=== PATIENT | male | born 1960 | race Caucasian/White ===

== ENCOUNTER 2019-06-28 13:39 | Emergency (ER) | payer BC ==
[2019-06-28] MEDS ORDERED: methylPREDNISolone SOD SUCCI 125 MG/2 ML VIAL IM ONE (14:31)
[2019-06-28] MEDS ORDERED: diphenhydrAMINE 50 MG CAP PO STA (14:31)
--- NOTE | 2019-06-28 15:34 | US ---
EXAMINATION TYPE: US venous doppler duplex LE LT DATE OF EXAM: 06/28/2019 3:09 PM COMPARISON: NONE CLINICAL HISTORY: pain. Injury with pain. SIDE PERFORMED: Left TECHNIQUE: The lower extremity deep venous system is examined utilizing real time linear array sonog meme with graded compression, doppler sonography and color-flow sonography. VESSELS IMAGED: External Iliac Vein (EIV) Common Femoral Vein Deep Femoral Vein Greater Saphenous Vein * Femoral Vein Popliteal Vein Small Saphenous Vein * Proximal Calf Veins (* superficial vessels) Left Leg: Negative for DVT Grayscale, color doppler, spectral doppler imaging performed of the deep veins of the left lower extr emity. There is normal flow, compressibility, vascular waveforms. IMPRESSION: No ultrasound evidence for acute DVT in the left lower extremity.
[2019-06-28 15:39] VITALS: TEMP 98.2
--- NOTE | 2019-06-28 16:13 | XR ---
EXAMINATION TYPE: XR knee 4V LT DATE OF EXAM: 06/28/2019 CLINICAL HISTORY: Pain after fall injury. TECHNIQUE: Three views of the left knee are obtained. Fourth sunrise view is acquired. COMPARISON: None. FINDINGS: There is no acute fracture/dislocation evident in left knee. Patellar articulation satisfa ctory on sunrise view. [id number] tricompartment joint space loss without significant spurring. Increased density suprapatellar bursa suspicious for small to moderate size joint effusion. IMPRESSION: There is no acute fracture or dislocation in the left knee.
--- NOTE | 2019-06-28 16:44 | ED ---
General Adult HPI - General Chief complaint: Extremity Injury, Lower Stated complaint: left face swelling, swollen left leg Time Seen by Provider: 06/28/19 14:13 Source: patient, RN notes reviewed Mode of arrival: wheelchair Limitations: no limitations - History of Present Illness Initial comments: 58-year-old male with a past medical history of hypertension presents to the emergency department for a chief complaint of left leg swelling. Patient states that he injured his knee a few weeks ago while wrestling and then hurt it again about a week ago. States that 3 days ago he started to have some swelling of the left leg. States he was concerned this could be a blood clot. Patient also incidentally had some left-sided facial swelling that started today. He states he was sitting with his when his left upper lip started swelling. Denies any swelling of the tongue. Denies any difficulty swallowing or difficulty breathing. Denies any ALLERGIES or trying any new foods.Patient has no other complaints at this time including shortness of breath, chest pain, abdominal pain, nausea or vomiting, headache, or visual changes. - Related Data Previous Rx's Medication Instructions Recorded predniSONE 50 mg PO DAILY #5 tablet 06/28/19 Allergies Allergy/AdvReac Type Severity Reaction Status Date / Time No Known Allergies Allergy Verified 06/28/19 14:00 Review of Systems ROS Statement: Those systems with pertinent positive or pertinent negative responses have been documented in the HPI. ROS Other: All systems not noted in ROS Statement are negative. Past Medical History Past Medical History: Hypertension Additional Past Medical History / Comment(s): gout History of Any Multi-Drug Resistant Organisms: None Reported Past Surgical History: Hernia Repair Past Psychological History: Anxiety, Depression Smoking Status: Never smoker Past Alcohol Use History: Daily Past Drug Use History: None Reported General Exam Limitations: no limitations General appearance: alert, in no apparent distress Head exam: Present: atraumatic, normocephalic, normal inspection Eye exam: Present: normal appearance, PERRL, EOMI. Absent: scleral icterus, conjunctival injection ENT exam: Present: normal exam, mucous membranes moist, TM's normal bilaterally, normal external ear exam. Absent: normal oropharynx (Patient does have mild edema of the left upper lip. No droop. Tongue is within normal limits. Patient able to smile without difficulty. Sensation is intact. There does not seem to be any dental abscesses.) Neck exam: Present: normal inspection, full ROM. Absent: tenderness, meningismus, lymphadenopathy Respiratory exam: Present: normal lung sounds bilaterally. Absent: respiratory distress, wheezes, rales, rhonchi, stridor Cardiovascular Exam: Present: regular rate, normal rhythm, normal heart sounds. Absent: systolic murmur, diastolic murmur, rubs, gallop, clicks GI/Abdominal exam: Present: soft, normal bowel sounds. Absent: distended, tenderness, guarding, rebound, rigid Extremities exam: Present: other (Capillary refill less than 2 seconds in the left lower extremity, DP pulse is 2+. Patient does have some mild edema of the left leg compared to the right leg. It is not erythematous, it is not warm to touch. He has full range of motion of the left knee ankle and hip. He is able to ambulate.) Course Vital Signs 06/28/19 06/28/19 13:56 15:38 Temperature 98.3 F 98.2 F Pulse Rate 85 91 Respiratory 20 16 Rate Blood Pressure 171/115 168/88 O2 Sat by Pulse 97 98 Oximetry Medical Decision Making - Medical Decision Making Patient was evaluated by Dr. Hahn as well. At this time we think the edema of the left lip is likely a idiopathic angioedema. He was given Solu-Medrol and Benadryl and had significant improvement in symptoms. In fact it is almost gone at the time of arrival. As for his leg, an ultrasound was performed that showed no evidence for acute DVT. Exam the left knee was then added which did show no acute fracture or dislocation. There is [id number] tricompartmental joint space loss and increase density suprapatellar bursa suspicious for small to moderate-sized joint effusion. Again discussed this with Dr. Hahn. This and the recommend following up with Dr. Flynn closely and returning if any symptoms worsen. Disposition Clinical Impression: Leg edema, left Disposition: HOME SELF-CARE Condition: Good Instructions (If sedation given, give patient instructions): Leg Edema (ED) Additional Instructions: Please keep leg elevated. He may try to use a compression stocking as well. Follow up with Dr. Flynn closely. You can also follow [facility] with [facility]. If things are worsening and he cannot be evaluated by her doctor please return to the emergency room. Prescriptions: predniSONE 50 mg PO DAILY #5 tablet Is patient prescribed a controlled substance at d/c from ED?: No Referrals: Hansel Flynn MD [Primary Care Provider] - 1-2 days Time of Disposition: 16:43
[2019-06-28 17:10] VITALS: BP 146/94; PULSE 86; RESP 18
== END 2019-06-28 17:09 | disposition home or self-care (01) ==
LOC: EC 13:39
DX: R60.0 Localized edema (principal); M10.9 Gout, unspecified
CPT/HCPCS: 73564; 93971; 99284; 96372; J2930

== ENCOUNTER 2022-09-08 11:02 | Emergency (ER) | payer BC ==
[2022-09-08 11:05] VITALS: RESP 18; TEMP 98.8
[2022-09-08] MEDS ORDERED: SODIUM CHLORIDE 0.9% 1,000 ML IV STA (11:24)
[2022-09-08] MEDS ORDERED: PANTOPRAZOLE 40 MG/10 ML VIAL IVP STA (11:24)
[2022-09-08] MEDS ORDERED: KETOROLAC 15 MG/ML 1 ML VIAL IVP STA (11:24)
[2022-09-08] MEDS ORDERED: LIDOCAINE 5% PATCH TOPICAL STA (11:24)
[2022-09-08] MEDS ORDERED: ONDANSETRON 4 MG/2 ML VIAL IVP STA (11:24)
[2022-09-08 12:03] LABS: Basophils % (A) 0 %; Eosinophils # (A) 0.1 k/uL (0-0.7); Eosinophils % (A) 1 %; HCT 46.6 % (39.0-53.0); HGB 15.3 gm/dL (13.0-17.5); Lymphocytes % (A) 10 %; MCH 29.3 pg (25.0-35.0); MCHC 32.9 g/dL (31.0-37.0); MCV 89.1 fL (80.0-100.0); Mean Platelet Volume 8.7; Monocytes # (A) 0.8 k/uL (0-1.0); Monocytes % (A) 8 %; Neutrophils % (A) 79 %; Platelet Count 224 k/uL (150-450); RBC 5.23 m/uL (4.30-5.90); RDW 12.8 % (11.5-15.5); WBC 10.2 k/uL (3.8-10.6)
[2022-09-08 12:11] LABS: Partial Thromboplastin Time 22.2 sec (22.0-30.0); Prothrombin Time 10.9 sec (9.0-12.0)
--- NOTE | 2022-09-08 12:22 | ED ---
General Adult HPI - General Chief complaint: Abdominal Pain Stated complaint: abd pain Time Seen by Provider: 09/08/22 11:06 Source: patient, RN notes reviewed, old records reviewed Mode of arrival: ambulatory Limitations: no limitations - History of Present Illness Initial comments: Patient is a 61-year-old male who presents emergency Department complaining of abdominal pain. Has a history of hypertension, gout, alcohol use. Denies any history of withdrawals. Presents emergency Department in of right upper quadrant abdominal pain which she states is a sharp, aching sensation located in the right upper quadrant. Also having diarrhea. Has been ongoing for 3 days. He is uncertain of this is mostly skeletal related to something intra-abdominal. Denies any chest pain or shortness of breath. Denies any right shoulder pain. Denies any nausea or vomiting. Pain is worse with movement. More or less constant. Some improvement only on it. No other acute complaints at this time. Was heavy lifting on Thursday which is when he started noticing the pain. Presents for further evaluation at this time. - Related Data Previous Rx's Medication Instructions Recorded predniSONE 50 mg PO DAILY #5 tablet 06/28/19 Cyclobenzaprine [Flexeril] 5 mg PO BID 7 Days #14 tablet 09/08/22 Allergies Allergy/AdvReac Type Severity Reaction Status Date / Time No Known Allergies Allergy Verified 09/08/22 11:05 Review of Systems ROS Statement: Those systems with pertinent positive or pertinent negative responses have been documented in the HPI. Review of Systems: CONST: Denies fever EYES: Denies blurry vision ENT: Denies nasal congestion C/V: Denies Chest pain RESP: Denies shortness of breath GI: Endorses abdominal pain : Denies dysuria SKIN: Denies rash. MSK: Denies joint pain. NEURO: Denies headache ROS Other: All systems not noted in ROS Statement are negative. Past Medical History Past Medical History: Hypertension Additional Past Medical History / Comment(s): gout History of Any Multi-Drug Resistant Organisms: None Reported Past Surgical History: Hernia Repair Past Psychological History: Anxiety, Depression Smoking Status: Never smoker Past Alcohol Use History: Daily Past Drug Use History: None Reported General Exam - General Exam Comments Initial Comments: General: Appears in no acute distress. HEAD: Normal with no signs of head trauma. EYES: PERRLA, EOMI, conjunctiva normal, no discharge. ENT: Hearing grossly intact, normal oropharynx. RESPIRATORY: Clear breath sounds bilaterally. No wheezes, rales, or rhonchi. C/V: Regular rate and rhythm. S1 and S2 auscultated, peripheral pulses 2+ and intact throughout ABD: Abdomen is soft, nondistended. Tender to palpation in the right upper quadrant along the right rib. No guarding. No rebound tenderness. No peritoneal signs. No CVA tenderness to percussion. No lower abdominal pain. EXT: Normal range of motion, no obvious deformity SKIN: No rashes or lesions observed on exposed skin. NEURO: Alert and oriented 4. Limitations: no limitations Course Vital Signs 09/08/22 09/08/22 11:03 13:26 Temperature 98.8 F Pulse Rate 95 75 Respiratory 18 18 Rate Blood Pressure 162/114 150/92 O2 Sat by Pulse 98 98 Oximetry Medical Decision Making - Medical Decision Making Was pt. sent in by a medical professional or institution (, PA, PIG CASTING MACHINE OPERATOR, urgent care, hospital, or fpc...) When possible be specific @ -No Did you speak to anyone other than the patient for history (EMS, parent, family, police, friend...)? What history was obtained from this source @ -No Did you review nursing and triage notes (agree or disagree)? Why? @ -I reviewed and agree with nursing and triage notes Were old charts reviewed (outside hosp., previous admission, EMS record, old EKG, old radiological studies, urgent care reports/EKG's, fpc records)? Report findings @ -No old charts were reviewed Differential Diagnosis (chest pain, altered mental status, abdominal pain women, abdominal pain men, vaginal bleeding, weakness, fever, dyspnea, syncope, headache, dizziness, GI bleed, back pain, seizure, CVA, palpatations, mental health, musculoskeletal)? @ -Differential Abdominal Pain Men: Appendicitis, cholecystitis, diverticulosis, ischemic bowel, pancreatitis, hep atitis, UTI, gastroenteritis, AAA, incarcerated hernia, bowel obstruction, constipation, inflammatory bowel, hepatitis, peptic ulcer disease, splenic infarction, perforated viscus, testicular torsion, this is not meant to be an all-inclusive list EKG interpreted by me (3pts min.). @ -As above X-rays interpreted by me (1pt min.). @ -Chest x-ray reveals no obvious acute cardio pulmonary process. CT interpreted by me (1pt min.). @ -None done U/S interpreted by me (1pt. min.). @ -Gallbladder ultrasound reveals no evidence of cholecystitis. Positive sonographic Funk sign. Per radiology, recommend HIDA scan in the correct clinical setting. What testing was considered but not performed or refused? (CT, X-rays, U/S, labs)? Why? @ -Considered CT imaging of the abdomen and pelvis but patient declines at this time which I believe is reasonable the setting of normal labs and imaging otherwise. What meds were considered but not given or refused? Why? @ -None Did you discuss the management of the patient with other professionals (professionals i.e. , PA, PIG CASTING MACHINE OPERATOR, lab, RT, psych nurse, social media assistant, asp net software developer, teacher, senior officer, case making machine operator)? Give summary @ -No Was smoking cessation discussed for >3mins.? @ -No Was critical care preformed (if so, how long)? @ -No Were there social determinants of health that impacted care today? How? (Homelessness, low income, unemployed, alcoholism, drug addiction, transportation, low edu. Level, literacy, decrease access to med. care, care home, rehab)? @ -No Was there de-escalation of care discussed even if they declined (Discuss DNR or withdrawal of care, Hospice)? DNR status @ -No What co-morbidities impacted this encounter? (DM, HTN, Smoking, COPD, CAD, Cancer, CVA, ARF, Chemo, Hep., AIDS, mental health diagnosis, sleep apnea, morbid obesity)? @ -None Was patient admitted / discharged? Hospital course, mention meds given and route, prescriptions, significant lab abnormalities, going to OR and other pertinent info. @ -Based on the patient's presentation and physical exam, I'm concerned for possible intra-abdominal pain. Also be secondary to abdominal wall pain. We will obtain abdominal laboratory studies, right upper quadrant ultrasound, chest x-ray. Vital signs within normal limits. He will be sent likely treatment with IV Toradol, lidocaine patch, IV Zofran, Protonix, 1 L fluid bolus. Patient was in agreement this plan. EKG shows no signs of acute ischemia. Imaging is unremarkable. Patient's labs are remarkable for a mild elevated ALT were no other acute findings. On reevaluation, I discussed with the patient. I did offer him a CT imaging in the belly however he refuses at this time. He is feeling improved and believes it is a abdominal wall strain which I am in agreement with. Strict return precautions were discussed. He is given a starter pack of Tylenol 3's. I will provide the patient with a prescription for Flexeril. I instructed the patient to follow up with their PCP in the next 1-3 days. I explained that the patient should return to the emergency department if they experience any worsening symptoms. Strict return precautions were discussed with the patient. The patient expressed understanding of these instructions. I answered all questions that the patient had. The patient was discharged home in good condition with their prescriptions and follow up information. Undiagnosed new problem with uncertain prognosis? @ -No Drug Therapy requiring intensive monitoring for toxicity (Heparin, Nitro, Insulin, Cardizem)? @ -No Were any procedures done? @ -No Diagnosis/symptom? @ -Abdominal pain of unknown etiology, abdominal wall strain Acute, or Chronic, or Acute on Chronic? @ -Acute Uncomplicated (without systemic symptoms) or Complicated (systemic symptoms)? @ -Uncomplicated Side effects of treatment? @ -none Exacerbation, Progression, or Severe Exacerbation] @ -no Poses a threat to life or bodily function? @ -no - Lab Data Result diagrams: 09/08/22 11:30 09/08/22 11:30 Lab Results 09/08/22 09/08/22 09/08/22 Range/Units 11:30 11:30 11:30 WBC 10.2 (3.8-10.6) k/uL RBC 5.23 (4.30-5.90) m/uL Hgb 15.3 (13.0-17.5) gm/dL Hct 46.6 (39.0-53.0) % MCV 89.1 (80.0-100.0) fL MCH 29.3 (25.0-35.0) pg MCHC 32.9 (31.0-37.0) g/dL RDW 12.8 (11.5-15.5) % Plt Count 224 (150-450) k/uL MPV 8.7 Neutrophils % 79 % Lymphocytes % 10 % Monocytes % 8 % Eosinophils % 1 % Basophils % 0 % Neutrophils # 8.0 H (1.3-7.7) k/uL Lymphocytes # 1.0 (1.0-4.8) k/uL Monocytes # 0.8 (0-1.0) k/uL Eosinophils # 0.1 (0-0.7) k/uL Basophils # 0.0 (0-0.2) k/uL PT 10.9 (9.0-12.0) sec INR 1.0 (<1.2) APTT 22.2 (22.0-30.0) sec Sodium 131 L (137-145) mmol/L Potassium 3.5 (3.5-5.1) mmol/L Chloride 95 L (98-107) mmol/L Carbon Dioxide 23 (22-30) mmol/L Anion Gap 13 mmol/L BUN 10 (9-20) mg/dL Creatinine 0.65 L (0.66-1.25) mg/dL Est GFR (CKD-EPI)AfAm >90 (>60 ml/min/1.73 sqM) Est GFR (CKD-EPI)NonAf >90 (>60 ml/min/1.73 sqM) Glucose 101 H (74-99) mg/dL Plasma Lactic Acid Jason (0.7-2.0) mmol/L Calcium 8.6 (8.4-10.2) mg/dL Total Bilirubin 1.4 H (0.2-1.3) mg/dL AST 55 (17-59) U/L ALT 70 H (4-49) U/L Alkaline Phosphatase 65 (38-126) U/L Total Protein 6.4 (6.3-8.2) g/dL Albumin 4.0 (3.5-5.0) g/dL Amylase 50 (30-110) U/L Lipase 50 (23-300) U/L 09/08/22 Range/Units 11:30 WBC (3.8-10.6) k/uL RBC (4.30-5.90) m/uL Hgb (13.0-17.5) gm/dL Hct (39.0-53.0) % MCV (80.0-100.0) fL MCH (25.0-35.0) pg MCHC (31.0-37.0) g/dL RDW (11.5-15.5) % Plt Count (150-450) k/uL MPV Neutrophils % % Lymphocytes % % Monocytes % % Eosinophils % % Basophils % % Neutrophils # (1.3-7.7) k/uL Lymphocytes # (1.0-4.8) k/uL Monocytes # (0-1.0) k/uL Eosinophils # (0-0.7) k/uL Basophils # (0-0.2) k/uL PT (9.0-12.0) sec INR (<1.2) APTT (22.0-30.0) sec Sodium (137-145) mmol/L Potassium (3.5-5.1) mmol/L Chloride (98-107) mmol/L Carbon Dioxide (22-30) mmol/L Anion Gap mmol/L BUN (9-20) mg/dL Creatinine (0.66-1.25) mg/dL Est GFR (CKD-EPI)AfAm (>60 ml/min/1.73 sqM) Est GFR (CKD-EPI)NonAf (>60 ml/min/1.73 sqM) Glucose (74-99) mg/dL Plasma Lactic Acid Jason 1.0 (0.7-2.0) mmol/L Calcium (8.4-10.2) mg/dL Total Bilirubin (0.2-1.3) mg/dL AST (17-59) U/L ALT (4-49) U/L Alkaline Phosphatase (38-126) U/L Total Protein (6.3-8.2) g/dL Albumin (3.5-5.0) g/dL Amylase (30-110) U/L Lipase (23-300) U/L - EKG Data -: EKG Interpreted by Me EKG Comments: 12-lead Electrocardiogram Interpretation Note EKG was reviewed and interpreted by myself. 12-lead ECG performed at 1133 is interpreted by me as revealing normal sinus rhythm at a rate of 69 beats per minute. [place] is normal. ME interval is 170 ms, QRS duration is 89 ms, QTc is 429 ms.. There were no ST or T wave abnormalities to suggest myocardial isch emia or injury. R wave progression across the precordium was satisfactory. By my interpretation this EKG is non-diagnostic for acute ischemia. Disposition Clinical Impression: Abdominal pain of unknown etiology, Abdominal wall strain Disposition: HOME SELF-CARE Condition: Good Instructions (If sedation given, give patient instructions): Muscle Strain (ED), Abdominal Pain (ED) Prescriptions: Cyclobenzaprine [Flexeril] 5 mg PO BID 7 Days #14 tablet Is patient prescribed a controlled substance at d/c from ED?: No Referrals: None,Stated [REFERRING] - 1-2 days Mary Ann Killian MD [STAFF PHYSICIAN] - 1-2 days Forms: Area PCPs Time of Disposition: 13:15
[2022-09-08 12:24] LABS: ALT 70 U/L (4-49); AST 55 U/L (17-59); African American GFR (CKD) >90 (>60 ml/min/1.73 sqM); Alkaline Phosphatase 65 U/L (38-126); Amylase 50 U/L (30-110); Anion Gap 13 mmol/L; Blood Urea Nitrogen 10 mg/dL (9-20); Calcium 8.6 mg/dL (8.4-10.2); Carbon Dioxide 23 mmol/L (22-30); Chloride 95 mmol/L (98-107); Glucose 101 mg/dL (74-99); Lipase 50 U/L (23-300); Non-African American GFR(CKD) >90 (>60 ml/min/1.73 sqM); Potassium 3.5 mmol/L (3.5-5.1); Sodium 131 mmol/L (137-145); Total Bilirubin 1.4 mg/dL (0.2-1.3); Total Protein 6.4 g/dL (6.3-8.2)
--- NOTE | 2022-09-08 12:36 | XR ---
EXAMINATION TYPE: XR chest 1V portable DATE OF EXAM: 09/08/2022 12:16 PM COMPARISON: None TECHNIQUE: XR chest 1V portable Frontal view of the chest. CLINICAL INDICATION:Male, 61 years old with history of abdominal pain; FINDINGS: Lungs/Pleura: Low lung volumes are present. There is no evidence of pleural effusion, focal consolida tion, or pneumothorax. Pulmonary vascularity: Unremarkable. Heart/mediastinum: Cardiomediastinal silhouette is unremarkable. Musculoskeletal: No acute osseous pathology. IMPRESSION: No acute cardiopulmonary disease/process.
--- NOTE | 2022-09-08 12:51 | US ---
EXAMINATION TYPE: US gallbladder DATE OF EXAM: 09/08/2022 COMPARISON: NONE CLINICAL INDICATION: Male, 61 years old with history of ruq abd pain; RUQ pain TECHNIQUE: Multiple sonographic images of the right upper quadrant are obtained. FINDINGS: EXAM MEASUREMENTS: Liver Length: 17.6 cm Gallbladder Wall: 0.2 cm CBD: 0.6 cm Pancreas: Obscured by bowel gas Liver: Difficult to penetrate- limited visualization, heterogeneous Gallbladder: Lumen clear, somewhat contracted- pt states he is NPO, wall not thickened Evidence for sonographic Funk's sign: Yes CBD: wnl Right Kidney: Unable to evaluate, pt wanted tech to stop exam IMPRESSION: 1. Somewhat contracted gallbladder without evidence for gallbladder wall thickening or pericholecyst ic fluid. Jacquard Loom Weaver does report a positive sonographic Funk sign. Consider correlation with [facility] HIDA scan for acute cholecystitis. 2. Hepatic steatosis.
[2022-09-08] MEDS ORDERED: MORPHINE SULFATE 4 MG/ML SYRINGE IVP STA (13:20)
[2022-09-08] MEDS ORDERED: ACET/COD 300 MG/30 MG STARTER PACK 6 TAB BTL PO STA (13:23)
[2022-09-08 13:26] VITALS: BP 150/92; PULSE 75
== END 2022-09-08 13:36 | disposition home or self-care (01) ==
LOC: EC 11:02
DX: S39.011A Strain of muscle, fascia and tendon of abdomen, initial encounter (principal); K76.0 Fatty (change of) liver, not elsewhere classified; I10 Essential (primary) hypertension; Z86.59 Personal history of other mental and behavioral disorders
CPT/HCPCS: 36415; 93005; 80053; 82150; 83605; 83690; 85025; 85610; 85730; 71045; 76705; 99284; 96374; 96375 ×3; 96361; J2270; J2405; J1885; C9113